=== PATIENT | male | born 1985 | race Caucasian/White ===

== ENCOUNTER 2020-06-15 11:24 | Outpatient (REF) | payer MEDICAID, SELFPAY ==
--- NOTE | 2020-06-15 11:27 | MHC.AU.P13 ---
Adult Audiological Evaluation Date of Visit: 06/15/20 Reason for Appointment: Annual audiological evaluation required by DDS. Patient was accompanied by his direct care staff Elfego Foley. He denies any concerns for Mr. Nowak's hearing. Does patient feel they have a hearing loss?: No Has hearing been tested previously?: Yes Previous Hearing Test Results: [facility], records not available to be reviewed today, but it is believe that previous testing indicated normal hearing. Hearing Handicap Inventory: HHIE SCORE: 0 Based on HHIE score, patient has: No perceived hearing handicap Medical History: Medical History: Developmental Disorder/Delay Otoscopy: Right Ear: Unremarkable Left Ear: Non-occluding cerumen Tympanometry: Right Ear: Normal Middle Ear System (Type A) Left Ear: Normal Middle Ear System (Type A) Hearing Evaluation: Transducer(s) Used: Insert Earphones Method: Conventional Audiometry Stimuli Used: Pure Tones Right Ear: Description of Hearing: Normal hearing from 250-4000 Hz, sloping to a mild hearing loss at 8000 Hz. Left Ear: Description of Hearing: Normal hearing from 250-2000 Hz, sloping to a mild hearing loss from 6896-0225 Hz. Patient began to become fatigued during test of the left ear. Some responses, especially in the high-frequencies which were tested last, may be suprathreshold. Did not test bone conduction or word discrimination due to patient fatigue. Speech Recognition Threshold (SRT): Method Used: Monitored Live Voice Stimuli Used: Spondee Words Right Ear: 10 dBHL Left Ear: 5 dBHL Recommendations: Recommendations: Audiological re-evaluation in one year. Amplification is not warranted at this time. Diagnosis: Primary Diagnosis: H90.3 Bilateral Sensorineural Hearing Loss Services Performed: Services Performed: Pure Tone- Air (CPT 18849) Speech Audiometry Threshold (SRT/SAT) (CPT 07976) Tympanometry (CPT 95785) Signature: Provider: Sky Landers, AUDREY-A
== END 2020-06-15 11:25 | disposition home or self-care (01) ==
LOC: HO.SH 11:24
PROVIDERS: PCP Internal Medicine; Referring Provider Internal Medicine; Visit Provider Internal Medicine
DX: H90.3 Sensorineural hearing loss, bilateral (principal); R62.50 Unspecified lack of expected normal physiological development in childhood
CPT/HCPCS: 92552; 92555; 92567

== ENCOUNTER 2021-06-17 13:47 | Outpatient (REF) | payer MEDICAID, SELFPAY ==
--- NOTE | 2021-06-17 16:04 | MHC.AU.ANR ---
Adult Audiological Evaluation Date of Visit: 06/17/21 Reason for Appointment: Annual audiological evaluation required by DDS. Patient was accompanied by his direct care staff Teresa Martínez. They deny any concerns for Mr. Nowak's hearing. Does patient feel they have a hearing loss?: No Has hearing been tested previously?: Yes Previous Hearing Test Results: [facility] [place] - Normal hearing sloping to a mild hearing loss at 8000 Hz in the right ear and a 7796-3417 Hz in the left ear. Began to fatigue to testing, and some responses may be suprathreshold. Medical History: Medical History: Developmental Disorder/Delay Medical History (Other): Acid reflux, anxiety Medication List: Mortin/ibuprofen PRN, Omeprazole 20 mg daily, Lexapro 15 mg daily, Ativan 1 mg/8 AM & 8 PM, Ativan 0.5 mg 12 PM & 4 PM, Atarax/Hydroxyzine 10 mg 8 AM & 12 PM Otoscopy: Right Ear: Unremarkable Left Ear: Unremarkable Tympanometry: Tympanometry performed due to: To assess integrity of the middle ear system Right Ear: Normal Middle Ear System (Type A) Left Ear: Normal Middle Ear System (Type A) Hearing Evaluation: Transducer(s) Used: Insert Earphones Method: Conventional Audiometry Stimuli Used: Pure Tones Right Ear: Description of Hearing: Normal hearing from 250-8000 Hz. Left Ear: Description of Hearing: Normal hearing from 250-8000 Hz. Speech Recognition Threshold (SRT): Method Used: Monitored Live Voice Stimuli Used: Spondee Words Right Ear: 15 dBHL Left Ear: 20 dBHL Comparison: Compared to the most recent evaluation: High-frequency thresholds have improved bilaterally compared to testing from 06/15/2020. Recommendations: No further audiological action is indicated at this time. Audiological re-evaluation if changes are noted. Annual evaluation as required by DDS and his [facility]. Diagnosis: Primary Diagnosis: H90.3 Bilateral Sensorineural Hearing Loss Services Performed: Services Performed: Pure Tone- Air (CPT 20848) Speech Audiometry Threshold (SRT/SAT) (CPT 35807) Tympanometry (CPT 82823) Signature: Provider: Sky Landers, CCC-A
--- NOTE | 2021-06-17 16:07 | MHC.AU.ANR ---
Adult Audiological Evaluation Date of Visit: 06/17/21 Reason for Appointment: Annual audiological evaluation required by DDS. Patient was accompanied by his direct care staff Teresa Martínez. They deny any concerns for Mr. Nowak's hearing. Does patient feel they have a hearing loss?: No Has hearing been tested previously?: Yes Previous Hearing Test Results: [facility] [place] - Normal hearing sloping to a mild hearing loss at 8000 Hz in the right ear and a 7017-4976 Hz in the left ear. Began to fatigue to testing, and some responses may be suprathreshold. Medical History: Medical History: Developmental Disorder/Delay Medical History (Other): Acid reflux, anxiety Medication List: Mortin/ibuprofen PRN, Omeprazole 20 mg daily, Lexapro 15 mg daily, Ativan 1 mg/8 AM & 8 PM, Ativan 0.5 mg 12 PM & 4 PM, Atarax/Hydroxyzine 10 mg 8 AM & 12 PM Otoscopy: Right Ear: Unremarkable Left Ear: Unremarkable Tympanometry: Tympanometry performed due to: To assess integrity of the middle ear system Right Ear: Normal Middle Ear System (Type A) Left Ear: Normal Middle Ear System (Type A) Hearing Evaluation: Transducer(s) Used: Insert Earphones Method: Conventional Audiometry Stimuli Used: Pure Tones Right Ear: Description of Hearing: Normal hearing from 250-8000 Hz. Left Ear: Description of Hearing: Normal hearing from 250-8000 Hz. Speech Recognition Threshold (SRT): Method Used: Monitored Live Voice Stimuli Used: Spondee Words Right Ear: 15 dBHL Left Ear: 20 dBHL Comparison: Compared to the most recent evaluation: High-frequency thresholds have improved bilaterally compared to testing from 06/15/2020. Recommendations: No further audiological action is indicated at this time. Audiological re-evaluation if changes are noted. Annual evaluation as required by DDS and his detention. Diagnosis: Primary Diagnosis: H93.293 Abnormal Auditory Perception Services Performed: Services Performed: Pure Tone- Air (CPT 94045) Speech Audiometry Threshold (SRT/SAT) (CPT 96309) Tympanometry (CPT 58187) Signature: Provider: Sky Landers, CCC-A
== END 2021-06-17 13:48 | disposition home or self-care (01) ==
LOC: HO.SH 13:47
PROVIDERS: Visit Provider Internal Medicine
DX: H90.3 Sensorineural hearing loss, bilateral (principal); H93.293 Other abnormal auditory perceptions, bilateral
CPT/HCPCS: 92552; 92555; 92567

== ENCOUNTER 2022-06-17 13:43 | Outpatient (REF) | payer MEDICAID, SELFPAY | END 2022-06-17 13:44 | disposition home or self-care (01) | LOC: HO.SH 13:43 | PROVIDERS: Visit Provider Internal Medicine | DX: Z01.118 Encounter for examination of ears and hearing with other abnormal findings (principal); H93.293 Other abnormal auditory perceptions, bilateral | CPT/HCPCS: 92557 ==

== ENCOUNTER 2024-03-01 08:59 | Outpatient (REF) | payer MEDICAID, SELFPAY | END 2024-03-01 09:00 | disposition home or self-care (01) | LOC: HO.SH 08:59 | PROVIDERS: Visit Provider Student in an Organized Health Care Education/Training Program | DX: Z01.118 Encounter for examination of ears and hearing with other abnormal findings (principal); H91.93 Unspecified hearing loss, bilateral | CPT/HCPCS: 92552; 92555 ==

== ENCOUNTER 2025-03-07 09:49 | Outpatient (REF) | payer MEDICAID, SELFPAY | END 2025-03-07 09:50 | disposition home or self-care (01) | LOC: HO.SH 09:49 | PROVIDERS: Visit Provider Student in an Organized Health Care Education/Training Program | DX: Z01.118 Encounter for examination of ears and hearing with other abnormal findings (principal); H91.93 Unspecified hearing loss, bilateral | CPT/HCPCS: 92552; 92555 ==